=== PATIENT | female | born 1950 | race Caucasian/White ===

== ENCOUNTER 2018-08-19 11:06 | Emergency (ER) | payer MEDICARE, OTHER ==
[2018-08-19 11:27] VITALS: BP 158/75
[2018-08-19] MEDS ORDERED: Sodium Chloride 0.9% 1,000 ML IV SCH (12:00)
[2018-08-19] MEDS ORDERED: Sodium Chloride 0.9% 80 ML IV ONE (12:24)
[2018-08-19] MEDS ORDERED: Iopamidol 612 MG/ML 100 ML Bottle IV SCH ×2 (12:30→13:15)
--- NOTE | 2018-08-19 12:59 | EDM.PDOC ---
ED HPI GENERAL MEDICAL PROBLEM - General Chief Complaint: Abdominal Pain Stated Complaint: STOMACH PAIN Time Seen by Provider: 08/19/18 11:30 Source of Information: Reports: Patient History Limitations: Reports: No Limitations - History of Present Illness INITIAL COMMENTS - FREE TEXT/NARRATIVE: pt arrived with pain in the lower abdoman. She has not been vomiting. She has had chills and a low grade temp. She has had normal bms. She states the pain started 2 nites ago and it has been off and on since that time. Onset: Other ( started 2 nites ago. ) Duration: Hour(s): Location: Reports: Abdomen Associated Symptoms: Reports: Fever/Chills, Weakness - Related Data Allergies Allergy/AdvReac Type Severity Reaction Status Date / Time No Known Allergies Allergy Verified 08/19/18 12:27 Home Meds: Home Meds Ascorbate Calcium [Vitamin C] 500 mg PO DAILY 06/04/15 [History] Aspirin [Ecotrin EC] 81 mg PO DAILY 06/04/15 [History] Cholecalciferol (Vitamin D3) [Vitamin D3] 1,000 unit PO DAILY 06/04/15 [History] Glucosamine/Chondroitin Sulf A [Glucosamine Chondroitin Cap] 2 each PO DAILY 07/14 [History] Levothyroxine 75 mcg PO ACBREAKFAST 06/04/15 [History] Losartan/Hydrochlorothiazide [Hyzaar 50-12.5 Tablet] 1 each PO DAILY 06/04/15 [ History] Multivitamin [Multi-Vitamin Daily] 1 tab PO DAILY 06/04/15 [History] Omeprazole [Prilosec] 20 mg PO DAILY 06/04/15 [History] Carboxymethylcellulose Sodium [Refresh Liquigel 1% Ophth Soln] 15 ml OP DAILY [History] Past Medical History HEENT History: Reports: Impaired Vision Cardiovascular History: Reports: Hypertension Respiratory History: Reports: None Gastrointestinal History: Reports: GERD 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: Dysfunctional Uterine Bleeding, Other 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 TECHNOLOGY INSTRUCTOR History: IV PARA IV Musculoskeletal History: Reports: None Neurological History: Reports: None Psychiatric History: Reports: None Endocrine/Metabolic History: Reports: Hypothyroidism Hematologic History: Reports: None Immunologic History: Reports: None Oncologic (Cancer) History: Reports: None Dermatologic History: Reports: None - Infectious Disease History Infectious Disease History: Reports: Measles, Mumps - Past Surgical History GI Surgical History: Reports: Colonoscopy Other GI Surgeries/Procedures: MEDICATES FOR THIS Female Surgical History: Reports: D&C Social & Family History - Tobacco Use Smoking Status *Q: Former Smoker Years of Tobacco use: 3 Packs/Tins Daily: 0.5 Used Tobacco, but Quit: Yes Month/Year Tobacco Last Used: 40 Second Hand Smoke Exposure: No - Caffeine Use Caffeine Use: Reports: Coffee Other Caffeine Use: 3 cups per coffee per day - Alcohol Use Days Per Week of Alcohol Use: 7 Number of Drinks Per Day: 1 Total Drinks Per Week: 7 - Recreational Drug Use Recreational Drug Use: No ED ROS GENERAL - Review of Systems Review Of Systems: See Below Constitutional: Reports: Fever, Weakness, Decreased Appetite HEENT: Reports: No Symptoms Respiratory: Reports: No Symptoms Cardiovascular: Reports: No Symptoms Endocrine: Reports: No Symptoms GI/Abdominal: Reports: Abdominal Pain, Other (pt has lower abdomanal pain more on the rt) : Reports: No Symptoms (pt is having lower abdomanal pain) Musculoskeletal: Reports: No Symptoms Skin: Reports: No Symptoms Neurological: Reports: No Symptoms ED EXAM, GI/ABD - Physical Exam Exam: See Below Text/Narrative:: pt arrived with pain accross the lower abdoman. She has not been vomiting. She has had stools. She has had a low grade temp. Exam Limited By: No Limitations General Appearance: Alert, Moderate Distress, Other (pain comes and goes in spasms. ) Ears: Normal TMs Nose: Normal Inspection Throat/Mouth: Normal Inspection Head: Atraumatic Neck: Normal Inspection Respiratory/Chest: No Respiratory Distress Cardiovascular: Regular Rate, Rhythm GI/Abdominal Exam: Other (pt is quite tender and guarded in the rt lower abdoman. ) (Female) Exam: Deferred Rectal (Female) Exam: Heme - Stool Back Exam: Normal Inspection Extremities: Normal Inspection Neurological: Alert, Oriented, Normal Cognition Psychiatric: Normal Affect Course - Vital Signs Last Recorded V/S: Last Vital Signs Temp 37.4 C 08/19/18 12:27 Pulse 100 08/19/18 12:27 Resp 17 08/19/18 12:27 BP 158/75 H 08/19/18 12:27 Pulse Ox 94 L 08/19/18 12:27 - Orders/Labs/Meds Orders: Active Orders 24 hr Category Date Time Status Ciprofloxacin in D5W [Cipro in D5W 400 MG/200 ML] 400 Med 08/19/18 14:10 Active mg Premix Bag 1 bag IV ONETIME Iopamidol [Isovue-300 (61%)] Med 08/19/18 13:15 Active 116 ml IV . DIRECTED Sodium Chloride 0.9% [Normal Saline] 1,000 ml Med 08/19/18 12:00 Active IV ASDIRECTED metroNIDAZOLE/Normal Saline [Flagyl 500 MG in NS 100 ML Med 08/19/18 14:10 Active ] 500 mg Premix Bag 1 bag IV ONETIME Medication Orders Sodium Chloride (Normal Saline) 1,000 mls @ 999 mls/hr IV ASDIRECTED ANALI Last Admin: 08/19/18 13:01 Dose: 999 mls/hr Ciprofloxacin/Dextrose 400 mg/ (Premix) 200 mls @ 200 mls/hr IV ONETIME ONE Stop: 08/19/18 15:09 Metronidazole 500 mg/ Premix 100 mls @ 100 mls/hr IV ONETIME ONE Stop: 08/19/18 15:09 Last Admin: 08/19/18 14:39 Dose: 100 mls/hr Iopamidol (Isovue-300 (61%)) 116 ml IV . DIRECTED ANALI Last Admin: 08/19/18 13:17 Dose: 100 ml Labs: Laboratory Tests 08/19/18 08/19/18 08/19/18 Range/Units 12:00 12:00 12:00 WBC 10.3 (4.5-11.0) K/uL RBC 4.81 (3.30-5.50) M/uL Hgb 13.7 (12.0-15.0) g/dL Hct 41.5 (36.0-48.0) % MCV 86 (80-98) fL MCH 29 (27-31) pg MCHC 33 (32-36) % Plt Count 209 (150-400) K/uL Neut % (Auto) 72 H (36-66) % Lymph % (Auto) 20 L (24-44) % [place] % (Auto) 8 H (2-6) % Eos % (Auto) 0 L (2-4) % Baso % (Auto) 1 (0-1) % Sodium 141 (140-148) mmol/L Potassium 3.6 (3.6-5.2) mmol/L Chloride 104 (100-108) mmol/L Carbon Dioxide 27 (21-32) mmol/L Anion Gap 10.5 (5.0-14.0) mmol/L BUN 15 (7-18) mg/dL Creatinine 0.7 (0.5-1.0) mg/dL Est Cr Clr Drug Dosing 57.24 mL/min Estimated GFR (MDRD) > 60 (>60) BUN/Creatinine Ratio Not Reportable Glucose 107 H (74-106) mg/dL Calcium 10.0 (8.5-10.1) mg/dL Total Bilirubin 0.7 (0.2-1.0) mg/dL AST 22 (15-37) U/L ALT 22 (12-78) U/L Alkaline Phosphatase 105 (46-116) U/L C-Reactive Protein (0.0-0.3) mg/dL Total Protein 7.5 (6.4-8.2) g/dL Albumin 3.6 (3.4-5.0) g/dL Globulin 3.9 H (2.3-3.5) g/dL Albumin/Globulin Ratio 0.9 L (1.2-2.2) Urine Color Yellow Urine Appearance Slightly cloudy Urine pH 7.0 (4.5-8.0) Ur Specific [place] 1.005 L (1.008-1.030) Urine Protein Negative (NEGATIVE) mg/dL Urine Glucose (UA) Normal (NEGATIVE) mg/dL Urine Ketones Negative (NEGATIVE) mg/dL Urine Occult Blood Negative (NEGATIVE) Urine Nitrite Negative (NEGATIVE) Urine Bilirubin Negative (NEGATIVE) Urine Urobilinogen Normal (NORMAL) mg/dL Ur Leukocyte Esterase Negative (NEGATIVE) Urine RBC 0-5 (0-5) Urine WBC 0-5 (0-5) Ur Epithelial Cells Few Amorphous Sediment Not seen Urine Bacteria Few Urine Mucus Not seen 08/19/18 Range/Units 12:15 WBC (4.5-11.0) K/uL RBC (3.30-5.50) M/uL Hgb (12.0-15.0) g/dL Hct (36.0-48.0) % MCV (80-98) fL MCH (27-31) pg MCHC (32-36) % Plt Count (150-400) K/uL Neut % (Auto) (36-66) % Lymph % (Auto) (24-44) % [place] % (Auto) (2-6) % Eos % (Auto) (2-4) % Baso % (Auto) (0-1) % Sodium (140-148) mmol/L Potassium (3.6-5.2) mmol/L Chloride (100-108) mmol/L Carbon Dioxide (21-32) mmol/L Anion Gap (5.0-14.0) mmol/L BUN (7-18) mg/dL Creatinine (0.5-1.0) mg/dL Est Cr Clr Drug Dosing mL/min Estimated GFR (MDRD) (>60) BUN/Creatinine Ratio Glucose (74-106) mg/dL Calcium (8.5-10.1) mg/dL Total Bilirubin (0.2-1.0) mg/dL AST (15-37) U/L ALT (12-78) U/L Alkaline Phosphatase (46-116) U/L C-Reactive Protein 7.35 H (0.0-0.3) mg/dL Total Protein (6.4-8.2) g/dL Albumin (3.4-5.0) g/dL Globulin (2.3-3.5) g/dL Albumin/Globulin Ratio (1.2-2.2) Urine Color Urine Appearance Urine pH (4.5-8.0) Ur Specific [place] (1.008-1.030) Urine Protein (NEGATIVE) mg/dL Urine Glucose (UA) (NEGATIVE) mg/dL Urine Ketones (NEGATIVE) mg/dL Urine Occult Blood (NEGATIVE) Urine Nitrite (NEGATIVE) Urine Bilirubin (NEGATIVE) Urine Urobilinogen (NORMAL) mg/dL Ur Leukocyte Esterase (NEGATIVE) Urine RBC (0-5) Urine WBC (0-5) Ur Epithelial Cells Amorphous Sediment Urine Bacteria Urine Mucus Meds: Medications Generic Name Dose Route Start Last Admin Trade Name Freq PRN Reason Stop Dose Admin Sodium Chloride 1,000 mls @ 999 mls/hr 08/19/18 12:00 08/19/18 13:01 Normal Saline IV 999 mls/hr ASDIRECTED ANALI Administration Ciprofloxacin/Dextrose 400 mg/ 200 mls @ 200 mls/hr 08/19/18 14:10 Premix IV 08/19/18 15:09 ONETIME ONE Metronidazole 500 mg/ Premix 100 mls @ 100 mls/hr 08/19/18 14:10 08/19/18 14: 39 IV 08/19/18 15:09 100 mls/hr ONETIME ONE Administration Iopamidol 116 ml 08/19/18 13:15 08/19/18 13:17 Isovue-300 (61%) IV 100 ml . DIRECTED ANALI Administration Discontinued Medications Generic Name Dose Route Start Last Admin Trade Name Marisol PRN Reason Stop Dose Admin Sodium Chloride 80 mls @ 3.5 mls/sec 08/19/18 12:24 08/19/18 13:17 Normal Saline IV 08/19/18 12:25 3 mls/sec ONETIME ONE Administration Iopamidol 100 ml 08/19/18 12:30 Isovue-300 (61%) IV . DIRECTED ANALI Sodium Chloride 10 ml 08/19/18 12:24 08/19/18 13:17 Saline Flush FLUSH 08/19/18 12:25 10 ml ONETIME ONE Administration - Re-Assessments/Exams Free Text/Narrative Re-Assessment/Exam: 08/19/18 14:44 pt had a normal wbc. Her crp was elevated. She had a cat scan of the abdoman and pelvois which showed a diverticulitis. She was given cipro and flagyl iv. Departure - Departure Time of Disposition: 14:46 Disposition: Home, Self-Care 01 Condition: Fair Clinical Impression: Diverticulitis - Discharge Information Referrals: PCP,None [Primary Care Provider] - Forms: ED Department Discharge Care Plan Goals: low fiber diet while acute pain otherwise increased fiber, push fluids, cipro 500mg bid for 10 days, flagyl 500mg tid for 10 days. Rtc if increased pain and fever. See regular Dr in [facility] wednesday or wed [place] #[phone] for severe pain. - My Orders Last 24 Hours: My Active Orders 08/19/18 12:00 Sodium Chloride 0.9% [Normal Saline] 1,000 ml IV ASDIRECTED 08/19/18 13:15 Iopamidol [Isovue-300 (61%)] 116 ml IV . DIRECTED - Assessment/Plan Last 24 Hours: My Active Orders 08/19/18 12:00 Sodium Chloride 0.9% [Normal Saline] 1,000 ml IV ASDIRECTED 08/19/18 13:15 Iopamidol [Isovue-300 (61%)] 116 ml IV . DIRECTED
[2018-08-19] MEDS: Sodium Chloride 0.9% 10 ML Syringe FLUSH ONE ×2 (13:05→13:17)
--- NOTE | 2018-08-19 13:58 | CRLCT ---
INDICATION: Lower abdominal pain. TECHNIQUE: A CT volumetric acquisition was performed of the abdomen and pelvis during intravenous infusion of 100 cc of Isovue-300 nonionic intravenous contrast. FINDINGS: CT images demonstrate a moderate size sliding hiatal hernia. The spleen appears normal. There are small benign cysts within the liver. The pancreas appears normal. The gallbladder and bile ducts are normal size. The adrenal glands have normal morphology. Benign cortical cysts are noted within both kidneys. There is no evidence of calculus or hydronephrosis. There are atherosclerotic changes within the aorta but no evidence of aneurysm or vascular dissection. There is no evidence of retroperitoneal lymphadenopathy. The small intestine appears normal. There are several diverticula within the colon and there is localized inflammation surrounding diverticula within the proximal sigmoid colon. There is inflammatory stranding within the periserosal fat but there is no evidence of abscess formation. There is a partially calcified 4.7 cm fibroid within the uterus. The ovaries are of normal size. Urinary bladder appears normal. IMPRESSION: Acute diverticulitis changes within the proximal sigmoid colon. Dictated by Seven Wheeler MD @ 08/19/2018 1:55:54 PM Please note that all CT scans at this facility use dose modulation, iterative reconstruction, and/or weight-based dosing when appropriate to reduce radiation dose to as low as reasonably achievable. Dictated by: Seven Wheeler MD @ 08/19/2018 13:56:00 (Electronically Signed)
[2018-08-19] MEDS ORDERED: metroNIDAZOLE/Normal Saline 500 MG in Premix Bag 1 BAG IV ONE (14:10)
[2018-08-19] MEDS ORDERED: Ciprofloxacin in D5W 400 MG in Premix Bag 1 BAG IV ONE ×2 (14:10)
== END 2018-08-19 16:13 | disposition home or self-care (01) ==
LOC: JP.ED 11:06
DX: K57.32 Diverticulitis of large intestine without perforation or abscess without bleeding (principal); I10 Essential (primary) hypertension; E03.9 Hypothyroidism, unspecified; K21.9 Gastro-esophageal reflux disease without esophagitis; Z79.82 Long term (current) use of aspirin; Z79.899 Other long term (current) drug therapy; Z87.891 Personal history of nicotine dependence
CPT/HCPCS: 36415; 74177; 80053; 81001; 85025; 86140; 96365; 96367; 99283; 99284; J0744; J3490; J7030; Q9967